=== PATIENT | female | born 1975 | race Caucasian/White ===

== ENCOUNTER 2022-10-30 14:53 | Outpatient (OUT) | payer OTHER, SELFPAY ==
[2022-10-30 15:35] LABS: Basophils Percent Auto 0.6 % (0.2-2.0); Eosinophils Percent Auto 0.3 % (0.9-7.0); Hematocrit 35.9 % (36.0-48.0); Hemoglobin 11.6 g/dL (12.0-16.0); Immature Granulocytes Abs Auto 0.01 10^3/uL (0.00-0.03); Immature Granulocytes Pct Auto 0.1 % (0.0-0.5); Lymphocytes Absolute Auto 1.3 10^3/uL (1.2-3.8); Mean Corpuscular HGB Conc 32.3 g/dL (29.9-35.2); Mean Corpuscular Hemoglobin 29.6 pg (26.7-34.0); Mean Corpuscular Volume 91.6 fL (81.0-99.0); Mean Platelet Volume 9.4 fL (9.5-13.5); Monocytes Absolute Auto 0.4 10^3/uL (0.3-0.8); Monocytes Percent Auto 6.3 % (1.7-12.0); Neutrophils Absolute Auto 5.1 10^3/uL (1.4-6.5); Neutrophils Percent Auto 73.7 % (43.0-75.0); Platelet Count 188 10^3/uL (150-450); Red Blood Count 3.92 10^6/uL (4.20-5.40); Red Cell Distribution Width 17.1 % (11.0-15.0); White Blood Count 6.9 10^3/uL (4.0-11.0)
[2022-10-30 16:12] LABS: Estimated Average Glucose 100 mg/dL; Glycohemoglobin A1C 5.1 % (4.5-6.2)
[2022-10-30 16:24] LABS: Alanine Aminotransferase 58 U/L (14-59); Albumin Globulin Ratio 1.1; Albumin Level 4.1 g/dL (3.4-5.0); Alkaline Phosphatase 114 U/L (46-116); Anion Gap 13.1; Aspartate Amino Transferase 116 U/L (15-37); BUN Creatinine Ratio 14.3; Bilirubin Total 0.6 mg/dL (0.2-1.0); Calcium 9.9 mg/dL (8.5-10.1); Carbon Dioxide 28.3 mmol/L (21.0-32.0); Chloride 99 mmol/L (98-107); Chol HDL Ratio 1.9; Cholesterol 214 mg/dL (<=200); Estimated GFR (African America >60 (>=60); Estimated GFR (Non-African Ame >60 (>=60); Globulin 3.7 g/dL; Glucose 90 mg/dL (74-106); HDL Cholesterol 110 mg/dL (40-60); Potassium 4.4 mmol/L (3.5-5.1); Sodium 136 mmol/L (136-145); Thyroid Stimulating Hormone 2.671 uIU/mL (0.358-3.740); Total Protein 7.8 g/dL (6.4-8.2); Triglycerides 29 mg/dL (<=150); VLDL CHOLESTEROL 5.8 mg/dL
[2022-10-31 05:10] LABS: HCV Ab Non Reactive (Non Reactive); HIV Ab/p24 Ag Screen Non Reactive (Non Reactive)
== END 2022-10-30 14:54 | disposition home or self-care (01) ==
LOC: LAB 14:59
PROVIDERS: PCP Nurse Practitioner Primary Care; Visit Provider Nurse Practitioner Primary Care
DX: Z00.00 Encounter for general adult medical examination without abnormal findings (principal); Z13.6 Encounter for screening for cardiovascular disorders; Z11.59 Encounter for screening for other viral diseases; Z11.4 Encounter for screening for human immunodeficiency virus [HIV]
CPT/HCPCS: 36415; 80053; 80061; 83036; 84439; 84443; 85025; 86803; 87389

== ENCOUNTER 2022-11-03 10:36 | Outpatient (OUT) | payer OTHER, SELFPAY ==
--- NOTE | 2022-11-03 10:42 | MR_ITS ---
[address] [address] Patient Name: DEISY BRANHAM MRN: [id number] date: 1975 Sex: F Assigned Patient Location: MRI Current Patient Location: MRI Accession/Order Number: [id number] Exam Date: 11/03/2022 11:00 Report Date: 11/03/2022 19:58 At the request of: MATEO GONZALEZ Procedure: MR cervical spine wo con EXAMINATION: MR cervical spine wo con HISTORY: Cervical Radiculopathy M54.12 COMPARISON: No relevant comparison available. TECHNIQUE: A variety of imaging planes and parameters were utilized for visualization of suspected pathology. FINDINGS: CRANIOCERVICAL AREA: Normal foramen magnum with no Chiari malformation. PARASPINAL AREA: Normal with no visible mass. BONES: Loss of normal cervical lordosis. Moderate degenerative spondylosis. Signal abnormality C5-C6 and C7, Modic 2 changes CORD: Mild narrowing of the central cord C3-C7. CERVICAL DISC LEVELS: C2-C3: Early degenerative disc disease is present without focal protrusion or neural impingement. C3-C4: Disc desiccation. Disc/osteophyte complex and facet osteoarthropathy. No central canal or right foraminal stenosis. Moderate narrowing of the left neural foramen C4-C5: Disc space narrowing and disc desiccation. Moderate diffuse disc/osteophyte complex and facet osteoarthropathy. Narrowing of the central canal to 7.8 mm in AP dimension. Moderate right and severe left foraminal stenosis C5-C6: Disc collapse with endplate sclerosis. Moderate diffuse disc/osteophyte complex. Narrowing the central canal to 6.6 mm in AP dimension. Moderate to severe bilateral foraminal stenosis C6-C7: Disc collapse with endplate sclerosis. Severe disc/osteophyte complex narrowing the central canal to 6.5 mm in AP dimension. Severe bilateral foraminal stenosis C7-T1:. No significant disc/facet abnormality, spinal stenosis, or foraminal stenosis. MR/MR cervical spine wo con IMPRESSION: Degenerative changes resulting in significant central and foraminal stenosis at multiple levels as detailed above Electronically authenticated by: NADER MEDRANO Date: 11/03/2022 19:58
== END 2022-11-03 10:37 | disposition home or self-care (01) ==
LOC: MRI 10:36
PROVIDERS: PCP Nurse Practitioner Primary Care; Visit Provider Nurse Practitioner Primary Care
DX: M54.12 Radiculopathy, cervical region (principal); M48.02 Spinal stenosis, cervical region
CPT/HCPCS: 72141

== ENCOUNTER 2022-11-17 10:53 | Outpatient (OUT) | payer OTHER, SELFPAY ==
[2022-11-17 11:36] LABS: Reticulocyte Count 0.03 % (0.60-3.10)
== END 2022-11-17 10:54 | disposition home or self-care (01) ==
LOC: LAB 10:54
PROVIDERS: PCP Nurse Practitioner Primary Care; Visit Provider Nurse Practitioner Primary Care
DX: D64.9 Anemia, unspecified (principal)
CPT/HCPCS: 36415; 82607; 82728; 82746; 83540; 83550; 85045

== ENCOUNTER 2022-11-25 14:59 | Outpatient (OUT) | payer OTHER, SELFPAY ==
--- NOTE | 2022-11-25 15:03 | MM_ITS ---
Patient: DEISY BRANHAM Exam Date: 11/25/2022 : 1975 Gender:F Ordering : MATEO Horowitz DAMIENJUAN M Admission #: [id number] Family : Order #: [id number] CLICK HERE TO VIEW EXAM RADIOLOGY REPORT PROCEDURE: MM TOMOSYNTHESIS SCREENING BI COMPARISON: MG MAMM DANTE SCRN W CAD DIG, 12/01/2018. INDICATIONS: Screening mammogram Z12.31 Calculator Name NCI Breast Cancer Risk Assessment Tool 5 Year Breast Cancer Risk 0.70% Lifetime Breast Cancer Risk 8.60% Personal Breast Cancer No Personal Ovarian Cancer No Treatments None Family Cancers Aunt-maternal with breast cancer at age 56. LOCATION: The [facility] BREAST COMPOSITION: Extremely dense, which lowers the sensitivity of mammography. FINDINGS: DIAGNOSTIC CATEGORY 2--BENIGN FINDING: RIGHT BREAST: No significant suspicious finding. Scattered benign-appearing calcifications are present. No significant change has occurred. LEFT BREAST: No significant suspicious finding. Scattered benign-appearing calcifications are present. No significant change has occurred. RECOMMENDATIONS: ROUTINE MAMMOGRAM AND CLINICAL EVALUATION IN 12 MONTHS. PLEASE NOTE: A NORMAL MAMMOGRAM DOES NOT EXCLUDE THE POSSIBILITY OF BREAST CANCER. A CLINICALLY SUSPICIOUS PALPABLE LUMP SHOULD BE BIOPSIED. Dictated by: Clay Pendleton M.D. on 11/27/2022 at 13:21 Approved by: Clay Pendleton M.D. on 11/27/2022 at 13:25
== END 2022-11-25 15:00 | disposition home or self-care (01) ==
LOC: MAMMO 14:59
PROVIDERS: PCP Nurse Practitioner Primary Care; Visit Provider Nurse Practitioner Primary Care
DX: Z12.31 Encounter for screening mammogram for malignant neoplasm of breast (principal)
CPT/HCPCS: 77063; 77067

== ENCOUNTER → 2022-12-02 11:31 | Day surgery (SDC) | payer OTHER, SELFPAY ==
[2022-12-02 11:55] LABS: Cannabinoid Screen Urine POSITIVE (NEGATIVE); Phencyclidine Screen Urine NEGATIVE (NEGATIVE)
[2022-12-02 11:56] LABS: Amphetamine Screen Urine NEGATIVE (NEGATIVE); Barbiturates Screen Urine NEGATIVE (NEGATIVE); Benzodiazepines Screen Urine NEGATIVE (NEGATIVE); Buprenorphine Screen Urine NEGATIVE (NEGATIVE); Cocaine Screen Urine NEGATIVE (NEGATIVE); Methadone Screen Urine NEGATIVE (NEGATIVE); Methamphetamines Screen Urine NEGATIVE (NEGATIVE); Opiate Screen Urine NEGATIVE (NEGATIVE); Oxycodone Screen Urine NEGATIVE (NEGATIVE); Tricyclic Antidepressant Urine NEGATIVE (NEGATIVE)
[2022-12-02 11:57] LABS: Ethanol 216 mg/dL
[2022-12-02 12:03] LABS: HCG Qualitative NEGATIVE (NEGATIVE)
[2022-12-02 12:10] VITALS: BP 115/81; PULSE 66; RESP 18; TEMP 36.1; O2SAT 98; BMI 21.3
--- NOTE | 2022-12-02 12:39 | PC.NURSE ---
Patient came in for scheduled procedure. She voiced that she had completed her prep. Assessment completed while awaiting lab results. Noted Alcohol level to be elevated when labs resulted. Maci Irizarry RN, Charge reported level to Dr. Almazan. This food writer went with Dr. Salgado to speak to patient about the level of alcohol in her system and the inability to have the procedure. Patient stated she did drink last night. Dr. Saglado explained that she can call the office to reschedule if she chooses to do so. Patient got dressed and was escorted to the waiting area where her mother was waiting to take her home.
== END ==
PROVIDERS: Anesthesiology; PCP Nurse Practitioner Primary Care; Visit Provider Surgery
DX: Z01.812 Encounter for preprocedural laboratory examination (principal)
CPT/HCPCS: 36415; 80307; 80320; 84703

== ENCOUNTER 2022-12-02 12:50 | Outpatient (OUT) | payer OTHER, SELFPAY | END 2022-12-02 12:51 | disposition home or self-care (01) | LOC: INF 12:51 | PROVIDERS: PCP Nurse Practitioner Primary Care; Visit Provider Internal Medicine Hematology & Oncology | DX: Z12.11 Encounter for screening for malignant neoplasm of colon (principal); Z53.8 Procedure and treatment not carried out for other reasons; Z01.812 Encounter for preprocedural laboratory examination; D50.9 Iron deficiency anemia, unspecified; D63.8 Anemia in other chronic diseases classified elsewhere; D52.9 Folate deficiency anemia, unspecified; D64.9 Anemia, unspecified | CPT/HCPCS: 45378; 36415; 80307; 80320; 84703; G0463 ==

== ENCOUNTER 2022-12-17 10:28 | Outpatient (OUT) | payer OTHER, SELFPAY ==
--- NOTE | 2022-12-17 10:32 | US_ITS ---
The [address] [address] Patient Name: DEISY BRANHAM MRN: [id number] date: 1975 Sex: F Assigned Patient Location: US Current Patient Location: US Accession/Order Number: [id number] Exam Date: 12/17/2022 10:33 Report Date: 12/17/2022 11:25 At the request of: MATEO GONZALEZ Procedure: US right upper quadrant EXAM: US right upper quadrant HISTORY: . Liver dysfunction K76.89, Elevated alkaline level R74.8, . COMPARISON: None. TECHNIQUE: Grayscale and color imaging was performed FINDINGS: The pancreas appears normal. The liver is normal in size. There is mild increased echogenicity of liver consistent with fatty infiltration of liver. Color-flow is noted in the portal and hepatic veins. The gallbladder appears normal with no stones or sludge identified. Common bile duct measures 5 mm. Right kidney measures 12.5 x 4.1 x 4.8 cm. No solid renal cortical masses or hydronephrosis is noted. No fluid is noted in the right upper quadrant. US/US right upper quadrant IMPRESSION: 1 increased echogenicity of liver consistent with fatty infiltration of liver. 2. The remainder the right upper quadrant was unremarkable. Electronically authenticated by: NADER ZAMUDIO Date: 12/17/2022 11:25
== END 2022-12-17 10:29 | disposition home or self-care (01) ==
LOC: US 10:28
PROVIDERS: PCP Nurse Practitioner Primary Care; Visit Provider Nurse Practitioner Primary Care
DX: K76.89 Other specified diseases of liver (principal); F10.10 Alcohol abuse, uncomplicated; R74.8 Abnormal levels of other serum enzymes
CPT/HCPCS: 76705

== ENCOUNTER 2023-01-05 11:22 | Outpatient (OUT) | payer OTHER, SELFPAY ==
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
== END 2023-01-05 11:23 | disposition home or self-care (01) ==
PROVIDERS: PCP Nurse Practitioner Primary Care; Visit Provider Anesthesiology
DX: M47.22 Other spondylosis with radiculopathy, cervical region (principal); M48.02 Spinal stenosis, cervical region
CPT/HCPCS: G0463

== ENCOUNTER 2023-01-12 07:32 | Outpatient (RCR) | payer OTHER, SELFPAY ==
[2023-01-06 10:45] LABS: Basophils Absolute Auto 0.1 10^3/uL (0.0-0.1); Eosinophils Absolute Auto 0.1 10^3/uL (0.0-0.7); Eosinophils Percent Auto 1.4 % (0.9-7.0); Hematocrit 39.4 % (36.0-48.0); Hemoglobin 12.5 g/dL (12.0-16.0); Immature Granulocytes Abs Auto 0.01 10^3/uL (0.00-0.03); Immature Granulocytes Pct Auto 0.2 % (0.0-0.5); Lymphocytes Absolute Auto 1.2 10^3/uL (1.2-3.8); Lymphocytes Percent Auto 24.9 % (20.5-60.0); Mean Corpuscular HGB Conc 31.7 g/dL (29.9-35.2); Mean Corpuscular Hemoglobin 29.9 pg (26.7-34.0); Mean Corpuscular Volume 94.3 fL (81.0-99.0); Mean Platelet Volume 9.1 fL (9.5-13.5); Monocytes Absolute Auto 0.5 10^3/uL (0.3-0.8); Monocytes Percent Auto 10.6 % (1.7-12.0); Neutrophils Percent Auto 61.9 % (43.0-75.0); Platelet Count 202 10^3/uL (150-450); Red Blood Count 4.18 10^6/uL (4.20-5.40); Red Cell Distribution Width 17.5 % (11.0-15.0); White Blood Count 4.9 10^3/uL (4.0-11.0)
[2023-01-06 10:57] LABS: Alanine Aminotransferase 51 U/L (14-59); Alkaline Phosphatase 118 U/L (46-116); Anion Gap 12.3; Aspartate Amino Transferase 127 U/L (15-37); BUN Creatinine Ratio 19.3; Bilirubin Total 0.3 mg/dL (0.2-1.0); C Reactive Protein <0.2 mg/dL (<=1.0); Carbon Dioxide 31.4 mmol/L (21.0-32.0); Chloride 103 mmol/L (98-107); Estimated GFR (African America >60 (>=60); Estimated GFR (Non-African Ame >60 (>=60); Globulin 4.2 g/dL; Glucose 86 mg/dL (74-106); Potassium 3.7 mmol/L (3.5-5.1); Sodium 143 mmol/L (136-145); Total Protein 8.2 g/dL (6.4-8.2)
[2023-01-06 11:01] LABS: Percent Iron Saturation 4.6 %
[2023-01-06 11:05] LABS: Erythrocyte Sedimentation Rate 42 mm/hr (<=20)
[2023-06-08 13:51] LABS: Reticulocyte Count 0.96 % (0.60-3.10)
== END 2023-01-17 23:59 | disposition home or self-care (01) ==
LOC: INF 07:32
PROVIDERS: PCP Nurse Practitioner Primary Care; Visit Provider Internal Medicine Hematology & Oncology
DX: D50.9 Iron deficiency anemia, unspecified (principal); D63.8 Anemia in other chronic diseases classified elsewhere; D52.9 Folate deficiency anemia, unspecified; K90.9 Intestinal malabsorption, unspecified
CPT/HCPCS: 36415; 80053; 82607; 82728; 82746; 83540; 83550; 85025; 85045; 85652; 86140; G0463

== ENCOUNTER 2023-02-03 10:25 | Outpatient (OUT) | payer OTHER, SELFPAY ==
[2023-02-03 11:11] LABS: Prothrombin Time 9.8 sec (9.0-11.6)
[2023-02-03 11:17] LABS: INR <0.93
[2023-02-04 05:07] LABS: Ceruloplasmin 33.5 mg/dL (19.0-39.0); HBsAg Screen Negative (Negative); HCV Ab Non Reactive (Non Reactive); Hep A Ab, IgM Negative (Negative); Hep B Core Ab, IgM Negative (Negative)
[2023-02-04 16:11] LABS: Actin (Smooth Muscle) Antibody 6 Units (0-19)
[2023-02-05 08:11] LABS: Antinuclear Antibodies, IFA Negative (.)
[2023-02-13 18:11] LABS: Alpha-1-Antitrypsin, Serum 180 mg/dL (101-187)
== END 2023-02-03 10:26 | disposition home or self-care (01) ==
LOC: LAB 10:26
PROVIDERS: PCP Nurse Practitioner Primary Care
DX: K76.89 Other specified diseases of liver (principal); F10.10 Alcohol abuse, uncomplicated
CPT/HCPCS: 36415; 80074; 82103; 82390; 83516; 85610; 86038

== ENCOUNTER 2023-03-30 12:33 | Outpatient (OUT) | payer OTHER, SELFPAY ==
[2023-03-30 13:19] LABS: Basophils Absolute Auto 0.1 10^3/uL (0.0-0.1); Basophils Percent Auto 0.9 % (0.2-2.0); Eosinophils Percent Auto 0.5 % (0.9-7.0); Hematocrit 31.4 % (36.0-48.0); Hemoglobin 9.6 g/dL (12.0-16.0); Immature Granulocytes Abs Auto 0.02 10^3/uL (0.00-0.03); Immature Granulocytes Pct Auto 0.3 % (0.0-0.5); Lymphocytes Absolute Auto 1.8 10^3/uL (1.2-3.8); Lymphocytes Percent Auto 27.3 % (20.5-60.0); Mean Corpuscular HGB Conc 30.6 g/dL (29.9-35.2); Mean Corpuscular Hemoglobin 25.9 pg (26.7-34.0); Mean Corpuscular Volume 84.9 fL (81.0-99.0); Mean Platelet Volume 9.3 fL (9.5-13.5); Monocytes Absolute Auto 0.6 10^3/uL (0.3-0.8); Monocytes Percent Auto 8.9 % (1.7-12.0); Neutrophils Absolute Auto 4.1 10^3/uL (1.4-6.5); Neutrophils Percent Auto 62.1 % (43.0-75.0); Platelet Count 186 10^3/uL (150-450); Red Cell Distribution Width 14.6 % (11.0-15.0); White Blood Count 6.6 10^3/uL (4.0-11.0)
[2023-03-30 14:23] LABS: Percent Iron Saturation 4.4 %
== END 2023-03-30 12:34 | disposition home or self-care (01) ==
LOC: LAB 12:34
PROVIDERS: PCP Nurse Practitioner Primary Care; Visit Provider Internal Medicine Hematology & Oncology
DX: D64.9 Anemia, unspecified (principal); D63.8 Anemia in other chronic diseases classified elsewhere; D52.9 Folate deficiency anemia, unspecified; K90.9 Intestinal malabsorption, unspecified; D50.9 Iron deficiency anemia, unspecified
CPT/HCPCS: 36415; 82607; 82728; 82746; 83540; 83550; 85025

== ENCOUNTER 2025-01-07 | Emergency (ER) | payer OTHER, SELFPAY ==
[2025-01-07 00:05] VITALS: BP 128/77; PULSE 83; TEMP 36.6; O2SAT 95; BMI 23.5
--- OUTSIDE RECORDS SUMMARY | 2025-01-07 00:05 | XMS_ITS | Clinical Summary ---
[facility] Address [id number] [address] [place] [address] Care Team Providers Care Site Physician Name Role Phone Unavailable Primary Care Provider Unavailabl e Allergies No known active allergies Medications naproxen (NAPROSYN) 500 mg tabletIndications:Acu te pain of right shoulder,Strain of acromioclavicular joint, right, subsequent encounter Take 1 tablet (500 mg total) by mouth 2 (two) times a day as needed for pain. Take with food. Stop ibuprofen (Motrin) 60 tablet 1 10/04/19 20 Active triamcinolone (KENALOG) 0.5 % ointmentIndications:B ug bite, initial encounter Apply 1 application topically 2 (two) times a day. 30 g 01/11/20 20 Active busPIRone (BUSPAR) 15 mg tablet Take 1 tablet (15 mg total) by mouth in the morning and 1 tablet (15 mg total) before bedtime. 02/15/20 Active VRAYLAR 6 mg capsule Take 1 capsule by mouth daily. 02/15/20 21 Active QUEtiapine (SEROquel) 100 mg tablet Take 1 tablet (100 mg total) by mouth nightly. 02/29/20 21 Active cyclobenzaprine (FLEXERIL) 10 mg tablet TAKE 1 TABLET BY MOUTH EVERY 8 HOURS NEEDED for back pain 09/11/19 23 Active ibuprofen (MOTRIN) 800 mg tablet Take 1 tablet (800 mg total) by mouth every 8 (eight) hours as needed for pain. 09/11/19 23 Active predniSONE (DELTASONE) 10 mg tablet TAKE 4 TABLETS BY MOUTH ONCE DAILY FOR 3 DAYS, then TAKE 3 TABLETS DAILY FOR 3 DAYS, then TAKE 2 TABLETS DAILY FOR 3 DAYS, then TAKE 1 TABLET DAILY FOR 3 DAYS 10/02/19 Active tiZANidine (ZANAFLEX) 2 mg tablet Take 1 tablet (2 mg total) by mouth 3 (three) times a day. 10/02/19 Active Active Problems Problem Noted Date Diagnosed Date Ringworm, body 01/24/2020 Bug bite 01/11/2020 Generalized anxiety disorder with panic attacks 09/01/2019 Crushing injury of right middle finger 0 Chronic nonintractable headache 03/29/2019 Insomnia due to other mental disorder 03/29/2019 Anxiety and depression 03/15/2019 Emphysema 03/15/2019 Right upper quadrant abdominal mass 01/05/2019 Overview (01/05/2019): See DT [address] of the chest 01/05/2019 Overview (01/25/2019): CT of Abd with incidental Lung abnormal finding 2018 Iron deficiency 11/24/2018 Overview (11/24/2018): Hx of / repeat lab pending Screening for malignant neoplasm of breast 11/24 Tobacco use 11/24/2018 Marijuana use 11/24/2018 Overview (11/24/2018): Current Marijuana use. Remote teenage tried LSD and cocaine once Alcohol use 11/24/2018 Overview (11/24/2018): 3 to 4 x week / vodka/ 3 to 4 drinks a setting / occasional weekend use of 6 to 7 drinkes Endometriosis Overview (12/29/2018): Laparoscopy. Using marijuana for pain Resolved Problems Problem Noted Date Diagnosed Date Resolved Date Strain of acromioclavicular joint 10/05/2019 01/24/2020 Acute pain of right shoulder 10/05/2019 01/24/2020 Right shoulder strain, initial encounter 09/22/2019 01/24/2020 Moderate episode of recurren t major depressive disorder 03/29/2019 03/29/2019 Major depressive disorder 11/24/2018 Overview (11/24/2018): Grief over father. Major depression since childhood. One suicide attempt with poison as teenager. 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 Family History * Patient is adopted Medical History Relation Name Comments Hernia Father Hypertension Father Breast cancer Maternal Aunt Hypertension Mother Relation Name Status Comments Father Alive Maternal Aunt Alive Mother Alive Social History Tobacco Use Types Packs/Day Years Used Date Smoking Tobacco: Every Day Cigarettes 0.5 20 Smokeless Tobacco: Never Tobacco Cessation:Ready to Q uit: Not Asked; Counseling Given: Not Answered Alcohol Use Standard Drinks/Week Comments Yes 3 (1 standard drink = 0.6 oz pur e alcohol) WEEKENDS vodka AUDIT-C Answer Date Recorded Frequency of Alcohol Consumption 2-3 times a wee k 11/24/2018 Average Number of Drinks 5 or 6 019 Frequency of Binge Drinking Not on file 10/2018 PHQ-2 Answer Date Recorded Total Score 0 03/04/2021 Childcare Answer Date Recorded Childcare Unknown 09/29/2018 Employment Answer Date Recorded Employment Unknown 09/29/2018 Hunger Screening Answer Date Recorded Within the past 12 months we worried whether our food would run out before we got money to buy more. Often True 11/25/2022 Within the past 12 months th e food we bought just didn't last and we didn't have money to get more. 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 Not on file Not on file Not on file Denies industrial exposures Not on file Not on file Not on file Last Filed Vital Signs Vital Sign Reading Time Taken Comments Blood Pressure 123/70 11/25/2022 9:35 AM EDT Pulse 66 11/25/2022 9:35 AM EDT Temperature 36 C (96.8 F) 09/30/2021 3:38 PM EDT Respiratory Rate 16 09/30/2021 3:38 PM EDT Oxygen Saturation 98% 09/30/2021 3:38 PM EDT Inhaled Oxygen Concentration - - Weight 57.2 kg (126 lb) 11/25/2022 9:35 AM EDT Height 165.1 cm (5' 5 ) 11/25/2022 9:35 AM EDT Body Mass Index 20.97 11/25/2022 9:35 AM EDT Plan of Treatment Health Maintenance Due Date Last Done Comments Depression Screening 1989 Tobacco Screening 1989 Mammogram 12/02/2019 12/01/2018 Adult BMI Screening 11/26/2023 11/25/2022 Influenza Vaccine 12/19/2024 Pap Smear 10/29/2025 10/29/2022, 10/29/2022 DTaP,Tdap and Td Vaccines (3 - Td or Tdap) 10/20/2032 10/20/2022, 01/21/2022 Medical Devices Implanted Type Area Sample Hand Device Identifier Shelf Expiration Date Model / Serial / Lot Mesh Brd Preshape Valdez 2x4 - [id number] - [id number] Implanted:Qty: 1 on 02/22/2019 by Unruly Valerio DO at [facility] Mesh N/A: Abdomen DAVOL 08/15/2020 [id number] / [id number] / [id number] Procedures Procedure Name Priority Date/Time Associated Diagnosis Comments HIGH RISK HPV W/ELMER Routine 10/29/2022 4:38 AM EDT Encounter for screening for human papillomavirus (HPV) Encounter for screening for malignant neoplasm of cervix MAMM SCREENING BILATERAL W CAD Routine 12/01/2018 2:05 PM EDT Screening for malignant neoplasm of breast from Last 3 Months or Most Recently Relevant to Health Maintenance Results * High risk HPV w/elmer (10/29/2022 4:38 AM EDT) Hpv specimen type ThinPrep 10/30/2022 4:38 AM EDT [facility] Hpv 16 Negative Negative^N egative 10/30/2022 2:36 PM EDT [facility] Hpv 18 Negative Negative^N egative 10/30/2022 2:36 PM EDT [facility] Other high risk hpv Negative Negative^N egative 10/30/2022 2:36 PM EDT [facility] Comment: HPV types 31,33,35,39,45,52,56,58,59,66 and 68 DNA were undetectable. THINP 10/29/2022 4:38 AM EDT 10/30/2022 4:39 AM EDT Adelita Buckley ANNOUNCER-PIPE CLEANER LAB BLOOD ORDERABLES Fi nal Result [facility] [address] [place] [address] [facility] [address] [place] [address] * Mammography screening bilateral with CAD (12/01/2018 2:05 PM EDT) Anatomical Region Laterality Modality Breast Bilateral Mammography 12/01/2018 2:24 PM EDT Narrative 12/01/2018 2:27 PM EDT History: Screening baseline mammogram Technique: Digital mammographic images of both breasts were obtained in CC and MLO projections. Computer-aided detection was utilized. Bilateral tomosynthesis was obtained in both projections. Comparison: None Breast Composition: The breasts are extremely dense, which lowers the sensitivity of mammography. Findings: A fat containing intramammary lymph node is displayed superiorly in the left breast. There are some scattered and benign-appearing calcifications displayed bilaterally. There is no evidence of dominant mass lesion, clustered microcalcifications, architectural distortion, or other findings in either breast to suggest the presence of malignancy. Impression: Both breasts negative for evidence of malignancy by digital mammography. A screening mammogram in one year is recommended. In addition, with the tissue density/complexity in this patient, additional screening with breast scintigraphy should be considered. Molecular breast imaging can reveal abnormalities that are occult on mammography. ACR Category: BIRADS 2 - Benign. Finalized by Max Walker MD on 12/01/2018 2:27 PM d MAMM 1 YR 2 Procedure Note Max Walker MD - 12/01/2018 History: Screening baseline mammogram Technique: Digital mammographic images of both breasts were obtained in CCand MLO projections. Computer-aided detection was utilized. Bilateraltomosynthesis was obtained in both projections. Comparison: None Breast Composition: The breasts are extremely dense, which lowers thesensitivity of mammography. Findings: A fat containing intramammary lymph node is displayed superiorlyin the left breast. There are some scattered and benign-appearingcalcifications displayed bilaterally. There is no evidence of dominantmass lesion, clustered microcalcifications, architectural distortion, orother findings in either breast to suggest the presence of malignancy. Impression: Both breasts negative for evidence of malignancy by digitalmammography. A screening mammogram in one year is recommended. In addition, with the tissue density/complexity in this patient,additional screening with breast scintigraphy should be considered.Molecular breast imaging can reveal abnormalities that are occult onmammography. ACR Category: BIRADS 2 - Benign. Finalized by Max Walker MD on 12/01/2018 2:27 PM d MAMM 1 YR 2 [facility] Ilo DO [facility] MAMMOGRAPHY ORDERABLES Final Result from Last 3 Months or Most Recently Relevant to Health Maintenance Insurance [place] [employer]
--- OUTSIDE RECORDS SUMMARY | 2025-01-07 00:05 | XMS_ITS | Encounter Summary ---
Author Organization [employer] [facility] tem Address [id number] [address] [place] [address] Care Team Providers Care Preparer Making Department Name Role Phone Radha Bobby ENVIRONMENTAL SYSTEMS COORDINATOR-SCRUM PRODUCT OWNER Primary Care Provid er Encounter Details Date Type Department Care Team (Late st Contact Info) Description 01/13/2019 Telephone [facility] [address] [place] [address] Niurka Dawkins DO [address] [place] [id number] Social History Tobacco Use Types Packs/Day Years Used Date Smoking Tobacco: Every Day Cigarettes 0.5 20 Smokeless Tobacco: Never Alcohol Use Standard Drinks/Week Comments Yes 3 (1 standard drink = 0.6 oz pur e alcohol) WEEKENDS /vodka AUDIT-C Answer Date Recorded Frequency of Alcohol Consumption 2-3 times a wee k 11/24/2018 Average Number of Drinks 5 or 6 019 Frequency of Binge Drinking Not on file 10/2018 PHQ-2 Answer Date Recorded PHQ-2 Score 17 11/24/2018 Childcare Answer Date Recorded Childcare Unknown 09/29/2018 Employment Answer Date Recorded Employment Unknown 09/29/2018 Comments No Sex and Gender Information Value Date Recorded Sex Assigned at Not on file Legal Sex Female 12:03 PM EDT Gender Identity Not on file Sexual Orientation Not on file Occupation Industry Job Start Date Job End 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
--- OUTSIDE RECORDS SUMMARY | 2025-01-07 00:05 | XMS_ITS | Clinical Summary ---
Author Organization [facility] Healthcare Address [address] [place] [address] Care Team Providers Care Varnish Cooker Name Role Phone Unavailable Primary Care Provider Unavailabl e Social History Tobacco Use Types Packs/Day Years Used Date Smoking Tobacco: Never Assessed Comments Unknown Sex and Gender Information Value Date Recorded Sex Assigned at Not on file Legal Sex Female 11:47 PM EDT Gender Identity Not on file Sexual Orientation Not on file Plan of Treatment Not on file
--- OUTSIDE RECORDS SUMMARY | 2025-01-07 00:06 | XMS_ITS | Encounter Summary ---
Author Organization [employer] Sys tem Address [id number] [address] [place] [address] Care Team Providers Care Upper Lining Cementer Name Role Phone Unavailable Primary Care Provider Unavailabl e Encounter Details Date Type Department Care Team (Late st Contact Info) Description 01/07/2022 Orders Only [facility] [address] [facility] [place] [address] [address] [place] [address] Maci Combs CMA Rheumatoid factor positive; Elevated sed rate; Other iron deficiency anemia; ETOH abuse; Elevated liver enzymes; Acquired hypothyroidism Social History Tobacco Use Types Packs/Day Years [...] Employment Answer Date Recorded Employment Unknown 09/29/2018 Purpose - Life Answer Date Recorded Purpose and direction in life Unknown Comments No Sex and Gender Information Value Date Recorded Sex Assigned at Not on file Legal Sex Female 12:03 PM EDT Gender Identity Not on file Sexual Orientation Not on file Occupation Industry Job Start Date Job End Date 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 Not on file Not on file Not on file Denies industrial exposures Not on file Not on file Not on file documented as of this encounter Plan of Treatment Not on file documented as of this encounter Procedures Procedure Name Priority Date/Time Associated Diagnosis Comments ERYTHROCYTE SEDIMENTATION RATE (ESR) Routine 01/04/2022 Rheumatoid factor positive Elevated sed rate IRON AND TIBC Routine 01/04/2022 Other iron deficiency anemia Elevated liver enzymes RHEUMATOID FACTOR Routine 01/04/2022 Rheumatoid factor positive URIC ACID Routine 01/04/2022 Rheumatoid factor positive Elevated sed rate TSH Routine 01/04/2022 Acquired hypothyroidism T4, FREE Routine 01/04/2022 Acquired hypothyroidism FOLATE Routine 01/04/2022 Other iron deficiency anemia ETOH abuse FERRITIN Routine 01/04/2022 Other iron deficiency anemia ETOH abuse Elevated liver enzymes VITAMIN B12 Routine 01/04/2022 Other iron deficiency anemia ETOH abuse Elevated liver enzymes LIVER PANEL Routine 01/04/2022 ETOH abuse Elevated liver enzymes documented in this encounter Results * TSH (01/04/2022) External Tsh 2.661 0.358 - 3.740 MANUALLY TRANSCRIBED RESULTS 01/04/2022 Rad[facility]isha [facility] Final Result Performing Organization Address City/[facility]/ZIP Co de Phone Number MANUALLY TRANSCRIBED RESULTS * T4, free (01/04/2022) External T4 Free 0.91 0.76 - 1.46 MANUALLY TRANSCRIBED RESULTS 01/04/2022 Radha [facility] Final Result MANUALLY TRANSCRIBED RESULTS * (ABNORMAL) Iron and TIBC (01/04/2022) Pathologist [facility] Iron Saturation 3.4 MANU ALLY TRANSCRIBED RESULTS Iron 15(A) 50 - 170 MANUALLY TRANSCRIBED RESULTS Tibc-calc only do not order 441 250 - 450 MANUALLY TRANSCRIBED RESULTS 01/04/2022 [facility] Final Result Performing Organization Address [facility] de Phone Number MANUALLY TRANSCRIBED RESULTS * Vitamin B12 (01/04/2022) Pathologist [facility] Vitamin B-12 783 193 - 986 MANUALL Y TRANSCRIBED RESULTS 01/04/2022 Radha Zane Prep [facility] LAB BLOOD ORDERABLES Final Result Performing Organization Address [facility] de Phone Number MANUALLY TRANSCRIBED RESULTS * (ABNORMAL) Ferritin (01/04/2022) Pathologist [facility] Ferritin 168(A) 6.2 - 137 MANUALLY TRANSCRIBED RESULTS 01/04/2022 Radha [facility] LAB BLOOD ORDERABLES Final Result Performing Organization Address [facility] de Phone Number MANUALLY TRANSCRIBED RESULTS * (ABNORMAL) Hepatic function panel (01/04/2022) Pathologist [facility] External Alt Sgpt 165(A) 14 - 59 MANUALLY TRANSCRIBED RESULTS External Ast 333(A) 46 - 115 MANUALL Y TRANSCRIBED RESULTS Total Bilirubin 0.3 0.2 - 1.0 MANUALLY TRANSCRIBED RESULTS External Direct Bilirubin Dbil 0.1 0.0 - 0.2 MANUALLY TRANSCRIBED RESULTS External Total Protein 8.8(A) 6.4 - 8.2 MANUALLY TRANSCRIBED RESULTS External Alb/Glob Ratio 1.0 MANUALLY TRANSCRIBED RESULTS Blood 01/04/2022 Radha Bobby FOREIGN POLICY OFFICER-[facility] LAB BLOOD ORDERABLES Final Result Performing Organization Address City/[facility] de Phone Number MANUALLY TRANSCRIBED RESULTS * Folate (01/04/2022) Pathologist [facility] Folate 13.10 8.6 - 58.90 MANUALLY TRANSCRIBED RESULTS Blood 01/04/2022 Radha Bobby [facility] Final Result Performing Organization Address [facility] de Phone Number MANUALLY TRANSCRIBED RESULTS * (ABNORMAL) Rheumatoid factor (01/04/2022) Pathologist [facility] Rheumatoid factor 133.3(A) 0 - 14 MANUALLY TRANSCRIBED RESULTS Blood 01/04/2022 Radha Rao Bobby [facility]LO[facility] Final Result Performing Organization Address [facility] de Phone Number MANUALLY TRANSCRIBED RESULTS * Uric acid (01/04/2022) Pathologist [facility] External Uric Acid 5.0 2.6 - 6.0 MANUALLY TRANSCRIBED RESULTS Blood 01/04/2022 Radha Bobby [facility] Final Result Performing Organization Address [facility] de Phone Number MANUALLY TRANSCRIBED RESULTS * Erythrocyte Sedimentation Rate (ESR) (01/04/2022) Pathologist [facility] Sed rate 48 <=20 MANUALLY TRANSCRIBED RESULTS 01/04/2022 Radha J Bobby [facility]LO[facility] Final Result Performing Organization Address City/[facility] de Phone Number MANUALLY TRANSCRIBED RESULTS documented in this encounter Visit Diagnoses Diagnosis Rheumatoid factor positive Other and unspecified nonspecific immunological findings Elevated sed rate Elevated sedimentation rate Other iron deficiency anemia ETOH abuse Nondependent alcohol abuse, unspecified drinking behavior Elevated liver enzymes Other nonspecific abnormal serum enzyme levels Acquired hypothyroidism Unspecified hypothyroidism documented in this encounter Additional Health Concerns Assessment Noted Time PHQ-9 Depression Total Score: 0 03/04/20 21 10:38 AM EST A Body Mass Index follow-up plan has been documented for the patient 01/11/2020 2:51 PM EDT documented as of this encounter
--- OUTSIDE RECORDS SUMMARY | 2025-01-07 00:06 | XMS_ITS | Encounter Summary ---
Author Organization [employer] [facility] tem Address [id number] [address] [place] [address] Care Team Providers Care Gyro Compass Tester Name Role Phone Radha Bobby AMF MECHANIC-ABRASIVE MIXER HELPER Primary Care Provid er Reason for Visit * Reason Onset Date Comments Rash 01/18/2020 Encounter Details Date Type Department Care Team (Late st Contact Info) Description [facility]/18[facility] [address] [place] [place] [address] Mishel Love CMA Rash Social History Tobacco Use Types Packs/Day Years [...] 10/2018 PHQ-2 Answer Date Recorded PHQ-2 Score 0 01/19/2020 Childcare Answer Date Recorded Childcare Unknown 09/29/2018 Employment Answer Date Recorded Employment Unknown 09/29/2018 Comments No Sex and Gender Information Value Date Recorded Sex Assigned at Not on file Legal Sex Female 12:03 PM EDT Gender Identity Not on file Sexual Orientation Not on file 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 No / Unsure 01/19/2020 9:35 PM EDT documented as of this encounter Miscellaneous Notes * Telephone Encounter - Mishel Love CMA - 01/18/2020 11:18 AM EDT Pt called in regards to rash that she was seen for 01/11. Rash has gotten noticably bigger, now the size of a silver dollar. Denies any itchiness, just getting larger. Noticed this morning that it waslarger. Has been using cream as directed. Told her I would call her back once Alea reviews. Mishel Love CMA 01/18/20 1122 * Telephone Encounter - DAYNE Torres - 01/18/2020 11:18 AM EDT Has video visit today, will discuss documented in this encounter Plan of Treatment Not on file documented as of this encounter Visit Diagnoses Not on filedocumented in this encounter Additional Health Concerns Assessment Noted Time PHQ-9 Depression Total Score: 2 01/11/20 20 9:07 AM EDT A Body Mass Index follow-up plan has been documented for the patient 01/11/2020 2:51 PM EDT documented as of this encounter Care Teams Gyro Compass Tester Relationship Specialty Start Date End Date Radha Bobby APRN-CNP PCP - General Family Medicine 03/08/19 01/06/22 documented as of this encounter
--- OUTSIDE RECORDS SUMMARY | 2025-01-07 00:06 | XMS_ITS | Encounter Summary ---
Author Organization [employer] [facility] tem Address [id number] [address] 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 No / Unsure 03/04/2021 10:31 AM EST documented as of this encounter Miscellaneous Notes * Telephone Encounter - Magdalena Pappas MA - 03/05/2021 2:49 PM EST [facility], they need your note closed in order to get testing approved. Would like it by end of the day. documented in this encounter Plan of Treatment Not on file documented as of this encounter Visit Diagnoses Not on filedocumented in this encounter Additional Health Concerns Assessment Noted Time PHQ-9 Depression Total Score: 0 03/04/20 21 10:38 AM EST A Body Mass Index follow-up plan has been documented for the patient 01/11/2020 2:51 PM EDT documented as of this encounter Care Teams Steward/Stewardess Economy Class Relationship Specialty Start Date End Date Radha Bobby, LEVELING MACHINE OPERATOR-SUPERVISOR MULTIFOCAL LENS PCP - General Family Medicine 03/08/19 01/06/22 documented as of this encounter
--- OUTSIDE RECORDS SUMMARY | 2025-01-07 00:06 | XMS_ITS | Encounter Summary ---
Author Organization [employer] Sy tem Address [id number] [address] [place] [address] Care Team Providers Care Java Development Manager Name Role Phone Radha Bobby POWERTRAIN ENGINEER-CERTIFIED JUVENILE PROBATION OFFICER Primary Care Provid er Encounter Details Date Type Department Care Team ([facility] st Contact Info) Description 11/20/2020 Telephone [facility] [address] [address] Cindy Riley MD [address] [facility] [place] [address] Social History Tobacco Use Types Packs/Day Years [...] PHQ-2 Answer Date Recorded Total Score 0 07/02/2020 Childcare Answer Date Recorded Childcare Unknown 09/29/2018 [...] Industry Job Start Date Job End Date [employer]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 on file Not on file Not on file Denies industrial exposures Not on file Not on file Not on file documented as of this encounter Miscellaneous Notes * Telephone Encounter - Kacey Chua - 11/20/2020 3:47 PM EDT Letter and MyChart message sent to patient for overdue ct and f/u with [facility] in [place] * Telephone Encounter - Suki Bearden RN - 11/20/2020 3:47 PM EDT No response re ct and appt message sent to pcp documented in this encounter Plan of Treatment Not on file documented as of this encounter Visit Diagnoses Not on filedocumented in this encounter Additional Health Concerns Assessment Noted Time PHQ-9 Depression Total Score: 0 07/03/19 21 10:57 AM EDT A Body Mass Index follow-up plan has been documented for the patient 01/11/2020 2:51 PM EDT documented as of this encounter Care Teams Java Development Manager Relationship Specialty Start Date End Date Radha Bobby, POWERTRAIN ENGINEER-CERTIFIED JUVENILE PROBATION OFFICER PCP - General Family Medicine 03/08/19 01/06/22 documented as of this encounter
--- OUTSIDE RECORDS SUMMARY | 2025-01-07 00:06 | XMS_ITS | CCD ---
Author Organization [facility] Care Team Providers Care Clinical Resource Manager Name Role Phone DR GINETTE BATES Admitting Unavailable JANA, DR PENG Attending Unavailable KEIRY BEGUM Primary Care Unavailable OSMEL SILVERIO Consulting Unavailable NADER STARK Consulting Unavailable JOVAN, DR BRANTLEY Admitting Unavailable JOVAN, DR BRANTLEY Attending Unavailable YVETTE MARQUEZ Primary Care Unavailable JOVAN, DR BRANTLEY Consulting Unavailable KEIRY BEGUM Admitting Unavailable KEIRY BEGUM Attending Unavailable YVETTE MARQUEZ Primary Care Unavailable KEIRY BEGUM Consulting Unavailable Asaroxi, Imad Unavailable MD Jerri Burnett Attending Provider NON STAFF Primary Care Provider Unavailabl e NON STAFF Primary Care Unavailable Asaad, Imad Admitting Unavailable Lex Imroxi Attending Unavailable Liborio Celeste Admitting Unavailab le Liborio Celeste Attending Unavailab le Medications Current Medications Medication Drug Class(es) Dates Sig (Normalized) Sig (Original) cariprazine 6 mg oral capsule (3 sources) Atypical Antipsychotic take 1 capsule by mouth every twenty-four hours Vraylar 6 MG 1 capsule Orally Once a day Active cyclobenzaprine hydrochloride 10 mg oral tablet (3 sources) Muscle Relaxant take 1 tablet by mouth every eight hours as needed Cyclobenzaprine HCl 10 MG 1 tablet Orally every 8 hrs as needed Active gabapentin 300 mg oral capsule (3 sources) Anti-epileptic Agent take 1 capsule by mouth every eight hours Gabapentin 300 MG 1 capsule Orally three times a day Active tiZANidine 2 mg oral tablet (3 sources) Central alpha-2 Adrenergic Agonist take 1 tablet by mouth every eight hours tiZANidine HCl 2 MG 1 tablet Orally Three times a day Active Problems Problem Classification Problem Date Documented Date Episodic/Chronic Alcohol-related disorders (5 sources) Alcohol abuse, uncomplicated; Translations: [Alcohol abuse] Onset: 01-07-2022 Chronic Deficiency and other anemia (1 source) Other iron deficiency anemias; Translations: [OTHER IRON DEFICIENCY ANEMIAS] Onset: 01-07-2022 Episodic E Codes: Natural/environment (1 source) Bitten by cat, initial encounter; Translations: [BITTEN BY CAT INITIAL ENCOUNTER] Onset: 01-23-2022 Episodic Immunizations and screening for infectious disease (3 sources) Encounter for immunization; Translations: [Other specified abnormal immunological findings in serum] Onset: 06-07-2021 Episodic Open wounds of extremities (4 sources) Open bite, left foot, initial encounter; Translations: [OPEN BITE LEFT FOOT INITIAL ENC] Onset: 01-21-2022 Episodic Other hematologic conditions (1 source) Elevated erythrocyte sedimentation rate; Translations: [ELEVATED ERYTHROCYTE SED RATE] Onset: 01-07-2022 Episodic Other liver diseases (3 sources) Abnormal liver function; Translations: [Other specified diseases of liver] Chronic Other liver diseases (1 source) Other specified diseases of liver Chronic Other liver diseases (1 source) Abnormal levels of other serum enzymes; Translations: [ABNORMAL LEVELS OTHER SERUM ENZYMES] Onset: 01-07-2022 Episodic Other screening for suspected conditions (not mental disorders or infectious disease) (9 sources) Encounter for screening for malignant neoplasm of cervix; Translations: [Elevated liver enzymes level] Onset: 06-05-2021 Episodic Skin and subcutaneous tissue infections (1 source) Local infection of the skin and subcutaneous tissue, unspecified; Translations: [LOCAL INFECT SKIN SUBQ TISSUE UNS] Onset: 01-23-2022 Episodic Substance-related disorders (1 source) Nicotine dependence, cigarettes, uncomplicated; Translations: [NICOTINE DEPEND CIGARETTES UNCOMP] Onset: 01-23-2022 Chronic Thyroid disorders (4 sources) Hypothyroidism, unspecified; Translations: [HYPOTHYROIDISM UNSPECIFIED] Onset: 01-04-2022 Chronic Results Test Name Value Interpretation Reference Range Facil ity XR FOOT LT MIN 3 VIEWSon XR FOOT LT MIN 3 VIEWS EXAM: XR FOOT LT MIN 3 VIEWS HISTORY: Cat-bite COMPARISON: X-rays 04/26/2019 TECHNIQUE: 3 views FINDINGS: IMPRESSION: Mild dorsal subcutaneous soft tissue edema of the hindfoot. No osseous lesion, fracture, dislocation or subluxation. Joint spaces are normal. No visualized effusion. Electronically authenticated by: NADER STARK Date: 2022-01-21 20:10 Normal [facility] RHEUMATOID FACTORon 01-08-20 RA Latex Turbid. 133.3 IU/mL Critically high <14.0 [facility] Comment on above: Result Comment: Resu lts confirmed on dilution. Performed By: #### B 12FOL, FT4, FERR, FETIBC #### [facility] [address] [address] [address] Ana Boone FERRITINon 01-04-2022 Ferritin [Mass/Vol] 168.0 ng/mL Critically high 6.2-137.0 [facility] Comment on above: Performed By: #### B 12FOL, FT4, FERR, FETIBC #### [facility] [address] [place] [address] Dr. Ana Boone FREE T4on 01-04-2022 Free T4 [Mass/Vol] 0.91 ng/dL Normal 0.76-1.46 [facility] Comment on above: Performed By: #### B 12FOL, FT4, FERR, FETIBC #### [facility] [address] [place] [address] Dr. Ana Boone IRON AND TIBCon 01-04-2022 % SATURATION 3.4 % Normal [facility] Comment on above: Performed By: #### B 12FOL, FT4, FERR, FETIBC #### [facility] [address] [address] [address] Ana Boone Iron [Mass/Vol] 15.0 ug/dL Critically low 50.0-170.0 [facility] Comment on above: Performed By: #### B 12FOL, FT4, FERR, FETIBC #### [facility] [address] [place] [address] Dr. Ana Boone TIBC DIRECT 441.0 ug/dL Normal 250.0-450.0 [facility] Comment on above: Performed By: #### B 12FOL, FT4, FERR, FETIBC #### [facility] [address] [place] [address] Dr. Ana Boone LIVER PROFILEon 01-04-2022 Albumin [Mass/Vol] 4.4 g/dL Normal 3.4-5.0 [facility] Comment on above: Performed By: #### T SH, LIVER, URIC #### [facility] [address] [address] [address] Ana Boone Albumin/Globulin [Mass ratio] 1.0 {ratio} Normal [facility] Comment on above: Performed By: #### T SH, LIVER, URIC #### [facility] [address] [address] [address] Ana Boone ALP [Catalytic activity/Vol] 147 U/L Critically high 46-116 [facility] Comment on above: Performed By: #### T SH, LIVER, URIC #### [facility] [address] [address] [address] Ana Boone ALT [Catalytic activity/Vol] 165 U/L Critically high 14-59 [facility] Comment on above: Performed By: #### T SH, LIVER, URIC #### [facility] [address] [address] [address] Ana Boone AST [Catalytic activity/Vol] 333 U/L Critically high 15-37 [facility] Comment on above: Performed By: #### T SH, LIVER, URIC #### [facility] [address] [place] [address] Dr. Ana Boone BILI, CONJUGATED 0.1 mg/dL Normal 0.0-0.2 [facility] Comment on above: Performed By: #### T SH, LIVER, URIC #### [facility] [address] [address] [address] Ana Boone Bilirubin [Mass/Vol] 0.3 mg/dL Normal 0.2-1.0 [facility] Comment on above: Performed By: #### T SH, LIVER, URIC #### [facility] [address] [address] [address] Ana Boone Globulin (S) [Mass/Vol] 4.4 g/dL Normal [facility] Comment on above: Performed By: #### T SH, LIVER, URIC #### [facility] [address] [address] [address] Ana Boone Protein [Mass/Vol] 8.8 g/dL Critically high 6.4-8.2 [facility] Comment on above: Performed By: #### T SH, LIVER, URIC #### [facility] [address] [address] [address] Ana Boone SED RATE WESTERGRENon 2021 SED RATE 48 mm/hr Critically high <=20 [facility] Comment on above: Performed By: #### S EDR #### [facility] [address] [address] [address] Ana Boone TSHon 01-04-2022 TSH 2.661 uIU/mL Normal 0.358-3.740 [facility] Comment on above: Performed By: #### T SH, LIVER, URIC #### [facility] [address] [place] [address] Dr. Ana Boone URIC ACID SERUMon 01-04-2022 Urate [Mass/Vol] 5.0 mg/dL Normal 2.6-6.0 [facility] Comment on above: Performed By: #### T SH, LIVER, URIC #### [facility] [address] [place] [address] Dr. Ana Boone VIT B12 AND FOLATEon 022 Cobalamin (Vitamin B12) [Mass/Vol] 783.0 pg/mL Normal 193.0-986.0 [facility] Comment on above: Performed By: #### B 12FOL, FT4, FERR, FETIBC #### [facility] [address] [place] [address] Dr. Ana Boone FOLATE 13.10 ng/mL Normal 8.60-58.90 [facility] Comment on above: Performed By: #### B 12FOL, FT4, FERR, FETIBC #### [facility] [address] [place] [address] Dr. Ana Boone PAP ACOG PANEL 2: 30 to 65on 06-10-2021 . . Normal [facility] Comment on above: Result Comment: Perf ormed at: WB Performed By: #### [id number] #### [facility] [address] [address] [address] Ana Boone Age Gdln ACOG Testing 30-65 Normal [facility] Comment on above: Performed By: #### [id number] #### [facility] [address] [address] [address] Ana Boone DIAGNOSIS: Comment Normal [facility] Comment on above: Result Comment: NEGA TIVE FOR INTRAEPITHELIAL LESION OR MALIGNANCY. Performed at: WB Performed By: #### [id number] #### [facility] [address] [address] [address] Ana Boone HPV Aptima Negative Normal Negative [facility] Comment on above: Result Comment: This nucleic acid amplification test detects fourteen high-risk HPV types (16,18,31,33,35,39,45,51,52,56,58,59,66,68) without differentiation. Performed at: =G Performed By: #### [id number] #### [facility] [address] [place] [address] Dr. Ana Boone Methodology: Comment Normal [facility] Comment on above: Result Comment: This liquid based ThinPrep(R) pap test was screened with the use of an image guided system. Performed at: WB Performed By: #### [id number] #### [facility] [address] [place] [address] Dr. Ana Boone Note: Comment Normal [facility] Comment on above: Result Comment: The Pap smear is a screening test designed to aid in the detection of premalignant and malignant conditions of the uterine cervix. It is not a diagnostic procedure and should not be used as the sole means of detecting cervical cancer. Both false-positive and false-negative reports do occur. . Performed at: WB Performed By: #### [id number] #### [facility] [address] [place] [address] Dr. Ana Boone Performed by: Comment Normal [facility] Comment on above: Result Comment: Araceli Robles, White Lead Filterer (ASCP) Performed at: WB Performed By: #### [id number] #### [facility] [address], [place] [address] Dr. Ana Boone Specimen adequacy: Comment Normal [facility] Comment on above: Result Comment: Sati sfactory for evaluation. Endocervical and/or squamous metaplastic cells (endocervical component) are present. Performed at: WB Performed By: #### 4 [id number] #### [facility] [address] [address] [address] Ana Boone Vital Signs Date Time Vital Sign Value Performing Clinician Facility 02-25-2023 14:45-0500 Body height 162.56 cm Imad Asaad Other [facility] Other 02-25-2023 14:45-0500 Body mass index (BMI) [Ratio] 22.71 kg/m2 Imad Asaad Other [facility] Other 02-25-2023 14:45-0500 Body weight 60.01 kg Imad Asaad Other [facility] Other 02-25-2023 14:45-0500 Diastolic blood pressure 77 mm[Hg] Imad Asaad Other [facility] Other 02-25-2023 14:45-0500 Systolic blood pressure 115 mm[Hg] Imad Asaad Other [facility] Other 01-22-2023 10:15-0400 Body height 162.56 cm Imad Asaad Other [facility] Other 01-22-2023 10:15-0400 Body mass index (BMI) [Ratio] 20.6 kg/m2 Imad Asaad Other [facility] Other 01-22-2023 10:15-0400 Body weight 54.43 kg Imad Asaad Other [facility] Other 01-22-2023 10:15-0400 Diastolic blood pressure 83 mm[Hg] Imad Asaad Other [facility] Other 01-22-2023 10:15-0400 Systolic blood pressure 118 mm[Hg] Imad Asaad Other [facility] Other Encounters Encounter Date Encounter Type Care Provider Facility Start: 02-25-2023 End: 02-25-2023 ambulatory Imad Asaad Other [facility] Other Start: 02-25-2023 Office outpatient visit 25 minutes Imad Asaad [facility] Start: 02-03-2023 End: 02-03-2023 ambulatory NON STAFF Facility:[facility] Start: 02-03-2023 End: 02-03-2023 ambulatory NON STAFF [facility] Work Phone: Start: 02-03-2023 End: 02-03-2023 Patient encounter procedure Imad Asaad Work Phone: [facility] Work Phone: Start: 02-02-2023 End: 02-02-2023 ambulatory Imad Asaad Other [facility] Other Start: 02-02-2023 Telephone encounter Imad Asaad [facility] Start: 01-22-2023 End: 01-22-2023 ambulatory Imad Asaad Other [facility] Other Start: 01-22-2023 Office outpatient new 45 minutes Imad Asaad [facility] Start: 10-29-2022 ambulatory Liborio Bowden acility:[facility] Start: 01-21-2022 End: 01-21-[address] GINETTE BATES Facility:[facility] Start: 01-04-2022 End: 01-05-2022 ambulatory KEIRY BEGUM Facility:[facility] Start: 06-05-2021 End: 06-05-[address] KARON ALDANA Facility:[facility] Procedures Date Procedure Procedure Detail Performing Clinician Start: 02-03-2023 Ultrasound elastogra phy of liver MD Jerri Burnett Work Phone: Plan of Treatment Date Care Activity Detail Author Start: 02-03-2023 [facility] Payers Date Payer Category Payer Self-pay 1975 Unknown [id number] 1975 Unknown [id number] 1975 Unknown [id number] 1959 Unknown [id number] Unknown [id number] [id number] Social History Date Type Detail Facility Sex Assigned At [facility] Other Start: 1975 Sex Assigned At Female F [facility] Goals Date Patient Goal Desired Activity /State Evaluation note 02-25-2023 Note Date & Type Note Facility 02-25-2023 Evaluation note Encounter Date Diagnosis Assessment Notes Feb, Elevated LFTs (ICD-10 - R79.89) Pt to obstain from alcohol. Labs ordered [facility] Other Evaluation note 02-02-2023 Note Date & Type Note Facility 02-02-2023 Evaluation note Encounter Date Diagnosis Assessment Notes Jan, Elevated LFTs (ICD-10 - R79.89) [facility] Other Evaluation note 01-22-2023 Note Date & Type Note Facility 01-22-2023 Evaluation note Encounter Date Diagnosis Assessment Notes Jan, Abnormal liver function (ICD-10 - K76.89) labs as indicated above Rto after testing is complete Jan, Alcohol abuse (ICD-10 - F10.10) Patient advised to avoid alcohol [facility] Other Evaluation note Note Date & Type Note Facility Evaluation note No assessment information availa ble [facility] Work Phone: History general Narrative - Reported Note Date & Type Note Facility History general Narrative - Reported Type Surgical History laparoscopy Surgical History hernia Surgical History appendectomy Hospitalization History see above surgical hx [facility] Other Summary Purpose Family History No Family History Records FoundNo Family History Records Found Advance Directives No Advanced Directives Records Found Advance Directive Response Recorded Date/ Time Advance Directives No February 03, 2023 12:48pm Chief Complaint and Reason for Visit Chief Complaint Abnormal Liver Funct ions Additional Source Comments INFORMATION SOURCE (unrecogn ized section and content) DATE CREATED AUTHOR 01/27/2022 [facility] DATE CREATED AUTHOR AUTHOR'S ORGANIZ ATION 04/05/2023 [facility] REASON FOR VISIT (unrecogniz ed section and content) [facility] FOR LIVER DYSFUNCTIONElevated LFT'sPATIENT IS HERE FOR FOLLOW UP LABS AND FIBROSCAN. LABS IN PATIENT DOCS Care Teams (unrecognized sec tion and content) Team Status: Active Member Role Status Dates NON STAFF Primary Care Provider Active Team Status: Inactive Member Role Status Dates Jerri Burnett MD Attending Provider Active NON STAFF Primary Care Provider Active FOR RECORDS PERTAINING TO PATIENTS WHO ARE OR HAVE BEEN ENROLLED IN A CHEMICAL DEPENDENCY/SUBSTANCEABUSE PROGRAM, SOME INFORMATION MAY BE OMITTED. This clinical summary was aggregated from multiple sources. Caution should be exercised in using it in the provision of clinical care. This summary normalizes information from multiple sources, and as a consequence, information in this document may materially change the coding, format and clinical context of patient data. In addition, data may be omitted in some cases. CLINICAL DECISIONS SHOULD BE BASED ON THE PRIMARY CLINICAL RECORDS. [employer] provides no warranty or guarantee of the accuracy or completeness of information in this document.
--- OUTSIDE RECORDS SUMMARY | 2025-01-07 00:06 | XMS_ITS | Encounter Summary ---
Author Organization [facility] tem Address [facility] [id number] [address] 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 Spot went away for 2 days, now came back and it is a little bigger, red, and bigger than a small round band aid in size. Told her I will call her back after Alea broderick. Sent her link to sign up for my chart, and told Mis to help her set up. Appt video made for today Magdalena Pappas MA 01/18/20 1434 documented in this encounter Plan of Treatment Not on file documented as of this encounter Visit Diagnoses Not on filedocumented in this encounter Additional Health Concerns Assessment Noted Time PHQ-9 Depression Total Score: 2 01/11/20 20 9:07 AM EDT A Body Mass Index follow-up plan has been documented for the patient 01/11/2020 2:51 PM EDT documented as of this encounter Care Teams Switchboard Mechanic Relationship Specialty Start Date End Date Radha Bobby, DIETITIAN-GAS ENGINE OPERATOR PCP - General Family Medicine 03/08/19 01/06/22 documented as of this encounter
--- OUTSIDE RECORDS SUMMARY | 2025-01-07 00:06 | XMS_ITS | Encounter Summary ---
Author Organization [facility] tem Address [id number] [address] [place] [address] Care Team Providers Care Crude Oil Treater Name Role Phone Radha Bobby STOVE BOTTOM WORKER-TILE MOLDER Primary Care Provid er Encounter Details Date Type Department Care Team (Late st Contact Info) Description 01/12/2020 Telephone [facility] [address] [facility] [id number] Mishel Love CMA Social History Tobacco Use Types Packs/Day Years [...] 10/2018 PHQ-2 Answer Date Recorded PHQ-2 Score 2 01/11/2020 Childcare Answer Date Recorded Childcare Unknown 09/29/2018 Employment Answer Date Recorded Employment Unknown 09/29/2018 Comments No Sex and Gender Information Value Date Recorded Sex Assigned at Not on file Legal Sex Female 12:03 PM EDT Gender Identity Not on file Sexual Orientation Not on file Occupation Industry Job Start Date Job End Date [employer]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 No / Unsure 01/10/2020 2:22 PM EDT documented as of this encounter Miscellaneous Notes * Telephone Encounter - Mishel Love CMA - 01/12/2020 2:01 PM EDT Pt called to let you know that Wellbutrin Mg is 300mg. Mishel Love CMA 01/12/20 1402 * Telephone Encounter - DAYNE Torres - 01/12/2020 2:01 PM EDT Thank yo for the clarification. Inform patient she is not taking 450mg dosing. [facility] she [facility] or stay on current dose of 300 mg * Telephone Encounter - Mishel Love CMA - 01/12/2020 2:01 PM EDT Called pt to ask about meds, VM not set up documented in this encounter Plan of Treatment Not on file documented as of this encounter Visit Diagnoses Not on filedocumented in this encounter Additional Health Concerns Assessment Noted Time PHQ-9 Depression Total Score: 2 01/11/20 20 9:07 AM EDT A Body Mass Index follow-up plan has been documented for the patient 01/11/2020 2:51 PM EDT documented as of this encounter Care Teams Crude Oil Treater Relationship Specialty Start Date End Date Radha Bobby APRN-CNP PCP - General Family Medicine 03/08/19 01/06/22 documented as of this encounter
--- NOTE | 2025-01-07 00:27 | ED_ITS ---
HPI HPI - General Adult General Chief complaint: Head Injury Stated complaint: head injury Time Seen by Provider: 01/07/25 00:01 Source: patient Mode of arrival: Wheelchair History of Present Illness HPI narrative: Patient is an otherwise healthy 49 year old female presenting to the ED for evaluation of a head injury. 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 She states she has a large amount of swelling over the left side of her scalp, which she is concerned about. She states she did not lose consciousness. She had no nausea or vomiting. She is not on anticoagulation and takes no daily medications. Other than the head injury, she denies sustaining any other injuries. She denies chest pain, shortness of breath, neck pain, nausea, or vomiting or abdominal pain. She does endorse drinking alcohol earlier tonight. Related Data Home Medications ?Medication ?Instructions ?Recorded ?Confirmed No Known Home Medications 01/07/2512/20 Allergies Allergy/AdvReac Type Severity Reaction Status Date / Time No Known Drug Allergies Allergy Verified 01/07/25 00:10 Opioid HPI Opioid Management Most Recent Opioid Data: Last Pain Scale 5 Today, 00:05 Ur Phencyclidine Scrn, (NEGATIVE) Negative , 11:39 Review of Systems 2 ROS Status of ROS 10 or more systems reviewed and unremark able except as noted in history and below PFSH [facility] Medical History Surgical History Family History Other Family history of cancer Family history of hypertension Social History Within the past year, how often did you have a drink containing alcohol: 2-3 times a week Within the past year, how many standard drinks containing alcohol did you have on a typical day: 5 or 6 Smoking status: Current every day smoker Non-prescribed substance use: cannabis (any form) 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 No active bleeding or overlying lacerations. EYES: Sclerae white. PERRLA. No raccoon eyes. EARS, NOSE, THROAT: Moist oral mucosa. No Perkins sign. RESPIRATORY: Clear to auscultation bilaterally, no wheezes, crackles, or stridor, no use of accessory muscles CARDIOVASCULAR: Normal rate and regular rhythm. There is no S3, S4, murmur, rub. GASTROINTESTINAL: Abdomen is nondistended. MUSCULOSKELETAL: No peripheral edema. No deformities. No C-spine tenderness. NEUROLOGIC: Patient is awake and alert. Ambulates with a mildly unsteady gait. Facies were symmetrical. Constitutional Vital Signs, click to edit/add: Last Vital Signs Temp 98 F 01/07/25 00:05 Pulse 78 01/07/25 01:35 Resp 14 01/07/25 01:35 BP 127/67 01/07/25 01:35 Pulse Ox 97 01/07/25 01:35 O2 Del Method Room Air 01/07/25 01:35 Course Vital Signs Vital signs: Vital Signs Temperature 98 F 01/07/25 00:05 Pulse Rate 83 01/07/25 00:05 Respiratory Rate 14 01/07/25 00:05 Blood Pressure 128/77 01/07/25 00:05 Pulse Oximetry 95 01/07/25 00:05 Oxygen Delivery Method Room Air 01/07/25 00:05 Temperature 98 F 01/07/25 00:05 Pulse Rate 78 01/07/25 01:35 Respiratory Rate 14 01/07/25 01:35 Blood Pressure 127/67 01/07/25 01:35 Pulse Oximetry 97 01/07/25 01:35 Oxygen Delivery Method Room Air 01/07/25 01:35 Medical Decision Making [facility] Narrative Medical decision making narrative: Patient is a 49-year-old female presenting to the emergency department for evaluation of a head injury s/p mechanical fall from standing height. She did drink alcohol earlier today. Vital signs on arrival are within normal limits. She is afebrile and hemodynamically stable. Examination as above, however is notable for left parietal scalp hematoma without any active bleeding. No physical exam findings concerning for basilar skull fracture. GCS 15. Differential diagnosis includes scalp hematoma, closed head injury, concussion, skull fracture, intracranial hemorrhage. CT head without contrast was ordered. CT head independently reviewed/interpreted by myself demonstrated no acute intracranial pathology or hemorrhage. There is a small left upper parietal s calp hematoma near the left vertex. On reevaluation, patient states she feels well and is comfortable being discharged home. The hematoma over the left parietal scalp appears the same size as when she first arrived, not expanding. I do believe the patient is stable for discharge at this time. They were instructed to follow up with her PCP as needed. Return precautions were given including any new or worsening symptoms. Patient understands and agrees to the plan. FINAL IMPRESSION: #Acute left parietal scalp hematoma #Acute closed head injury DISPOSITION: Discharged home CONDITION: Good Imaging Data CT scan - head: Attestation: I personally reviewed and interpreted this imaging study as follows: Discharge Plan Discharge Chief Complaint: Head Injury Clinical Impression: Closed head injury, Hematoma of left parietal scalp Patient Disposition: Home, Self-Care Time of Disposition Decision: 01:38 Condition: Good Mode of Transportation: Private Vehicle Prescriptions / Home Meds: No Action No Known Home Medications Print Language: Salvadorean Instructions: Head Injury (ED) Referrals: Robin Up NP [Primary Care Provider] - 1 week
[2025-01-07 01:35] VITALS: BP 127/67; PULSE 78; O2SAT 97
== END 2025-01-07 01:44 | disposition home or self-care (01) ==
PROVIDERS: Emergency Provider Student in an Organized Health Care Education/Training Program; PCP Nurse Practitioner Primary Care
DX: S09.8XXA Other specified injuries of head, initial encounter (principal); S00.03XA Contusion of scalp, initial encounter; W01.0XXA Fall on same level from slipping, tripping and stumbling without subsequent striking against object, initial encounter; F17.200 Nicotine dependence, unspecified, uncomplicated
CPT/HCPCS: 70450; 99284